=== PATIENT | female | born 1995 | race African-American/Black ===

== ENCOUNTER 2017-07-14 22:37 | Observation (INO) | payer OTHER ==
[2017-07-14 23:46] LABS: BILIRUBIN,URINE NEGATIVE (NEGATIVE); GLUCOSE, URINE (UA) NEGATIVE (NEGATIVE); KETONES,URINE (UA) 40 mg/dL (NEGATIVE); LEUKOCYTE ESTERASE, URINE NEGATIVE (NEGATIVE); NITRITE,URINE NEGATIVE (NEGATIVE); OCCULT BLOOD,URINE NEGATIVE (NEGATIVE); PROTEIN,URINE NEGATIVE (NEGATIVE); UROBILINOGEN,URINE 0.2 (NORMAL) E.U./dL (NORMAL)
[2017-07-14 23:56] LABS: CLARITY,URINE CLEAR (CLEAR); HCG UR QUAL NEGATIVE
[2017-07-15] MEDS ORDERED: ONDANSETRON 4 MG/2 ML VIAL IVP STA (00:36)
[2017-07-15] MEDS ORDERED: ACETAMINOPHEN 1,000 MG/100 ML 100 ML IV STA (00:36)
[2017-07-15] MEDS ORDERED: SODIUM CHLORIDE 0.9% 1,000 ML IV ONE (00:36)
--- NOTE | 2017-07-15 01:12 | ED Physician Documentation ---
PD HPI ABD PAIN - Stated complaint Stated Complaint: ABD PX - Chief complaint Chief Complaint: Abd Pain - History obtained from History obtained from: Patient, Family - History of Present Illness Timing - onset: Enter time (1800), Today Timing - duration: Hours Timing - details: Abrupt onset, Still present Quality: Sharp, Pain Location: Epigastric, RLQ Improved by: Laying still, Vomiting Worsened by: Moving Associated symptoms: Nausea, Vomiting. No: Diarrhea, Constipation Similar symptoms before: Has not had sx before Recently seen: Not recently seen - Additional information Additional information: 21-year-old female spent the afternoon with friends and came home had dinner and around 6:00 she began to have some epigastric pain followed by vomiting. She vomited about 6 times and now her pain has migrated to the lower abdomen. Review of Systems Constitutional: denies: Fever Eyes: denies: Decreased vision Ears: denies: Ear pain Nose: denies: Congestion Throat: denies: Sore throat Cardiac: denies: Chest pain / pressure Respiratory: denies: Dyspnea, Cough GI: reports: Abdominal Pain, Nausea, Vomiting : denies: Dysuria, Frequency Skin: denies: Rash Musculoskeletal: denies: Neck pain, Back pain, Extremity pain Neurologic: denies: Generalized weakness, Focal weakness, Numbness PD PAST MEDICAL HISTORY - Past Medical History Past Medical History: No - Past Surgical History Past Surgical History: No - Present Medications Home Medications: Ambulatory Orders Medication Instructions Recorded Confirmed No Known Home Medications [No 07/14/17 07/14/17 Known Home Medications] - Allergies Allergies/Adverse Reactions: Allergies Allergy/AdvReac Type Severity Reaction Status Date / Time No Known Drug Allergies Allergy Verified 07/14/17 22:53 - Social History Does the pt smoke?: No Smoking Status: Never smoker Does the pt drink ETOH?: Yes Does the pt have substance abuse?: No - Immunizations Immunizations are current?: Yes PD ED PE NORMAL - Vitals Vital signs reviewed: Yes (normal ) - General General: Alert and oriented X 3, No acute distress, Well developed/nourished - HEENT HEENT: Atraumatic, PERRL - Neck Neck: Supple, no meningeal sign, No bony TTP - Cardiac Cardiac: RRR, No murmur - Respiratory Respiratory: No respiratory distress, Clear bilaterally - Abdomen Abdomen: Soft, Other (There is no epigastric tenderness and no left or right upper quadrant tenderness. There is specific right lower quadrant tenderness that is reproducible and she does have garding. ) - Back Back: No CVA TTP, No spinal TTP - Derm Derm: Normal color, Warm and dry, No rash - Extremities Extremities: No deformity, No edema - Neuro Neuro: No motor deficit, No sensory deficit Eye Opening: Spontaneous Motor: Obeys Commands Verbal: Oriented GCS Score: 15 - Psych Psych: Normal mood, Normal affect Results - Vitals Vitals: Vital Signs - 24 hr 07/14/17 07/15/17 07/15/17 22:49 00:00 01:34 Temperature 37.4 C Heart Rate 98 99 95 Respiratory 18 20 16 Rate Blood Pressure 103/64 105/59 L 102/51 L O2 Saturation 100 100 99 07/15/17 02:38 Temperature Heart Rate 90 Respiratory 16 Rate Blood Pressure 101/56 L O2 Saturation 97 Oxygen O2 Source Room air - Labs Labs: Laboratory Tests 07/14/17 07/15/17 07/15/17 23:36 00:59 00:59 WBC 18.0 H RBC 4.39 Hgb 12.9 Hct 38.2 MCV 87.1 MCH 29.4 MCHC 33.8 RDW 13.8 Plt Count 231 MPV 8.5 Neut # 16.0 H Lymph # 1.2 L Starr # 0.8 Eos # 0.0 Baso # 0.0 Absolute Nucleated RBC 0.00 Nucleated RBC % 0.0 Sodium 137 Potassium 3.8 Chloride 106 Carbon Dioxide 20 L Anion Gap 11.0 BUN 14 Creatinine 0.6 Estimated GFR (MDRD) 152 Glucose 122 H Calcium 9.0 Total Bilirubin 0.8 AST 20 ALT 14 Alkaline Phosphatase 44 Total Protein 7.7 Albumin 4.3 Globulin 3.4 Albumin/Globulin Ratio 1.3 Lipase < 10 L Urine Color YELLOW Urine Clarity CLEAR Urine pH 6.0 Ur Specific [place] >=1.030 H Urine Protein NEGATIVE Urine Glucose (UA) NEGATIVE Urine Ketones 40 H Urine Occult Blood NEGATIVE Urine Nitrite NEGATIVE Urine Bilirubin NEGATIVE Urine Urobilinogen 0.2 (NORMAL) Ur Leukocyte Esterase NEGATIVE Ur Microscopic Review NOT INDICATED Urine Culture Comments NOT INDICATED Urine HCG, Qual NEGATIVE - Rads (name of study) CT ab/pel without Radiology: Prelim report reviewed (Impression: Appendix not clearly separable from low pelvic cecum and terminal ileum. No definite acute disease. If clinical suspicion of appendicitis is high, further evaluation with ultrasound may be helpful.), EMP read indepedently, See rad report Ultrasound abdomen limited Radiology: Prelim report reviewed (Impression: Findings consistent with acute appendicitis.), EMP read indepedently, See rad report PD MEDICAL DECISION MAKING - ED course Complexity details: reviewed results, re-evaluated patient, considered differential, d/w patient, d/w family ED course: 21-year-old female with acute epigastric pain has had migration of the pain to the right lower quadrant and this has persisted. It is been persistent on examination this morning repeatedly. A CT scan of the abdomen pelvis without contrast was obtained and the appendix was not able to be appreciated on that scan. An ultrasound of the right lower quadrant was obtained demonstrating acute appendicitis. Dr. Oswaldo Sinclair is consulted in the case and graciously agrees to care for the patient. Here in the emergency department patient administered a liter of saline and 1000 mg of acetaminophen intravenously.She has good improvement in her pain with the acetaminophen but continues to have specific right lower quadrant tenderness on exam. Departure - Departure Disposition: ED Transfer to [facility] Clinical Impression: Appendicitis Qualifiers: Appendicitis type: acute appendicitis Acute appendicitis type: with localized peritonitis Qualified Code(s): K35.3 - Acute appendicitis with localized peritonitis
[2017-07-15 01:18] LABS: ALBUMIN 4.3 g/dL (3.2-5.5); ALBUMIN/GLOBULIN RATIO 1.3 (1.0-2.2); ALKALINE PHOSPHATASE 44 IU/L (42-121); ALT ALANINE AMINOTRANSFERASE 14 IU/L (10-60); AST ASPARTATE AMINOTRANSFERASE 20 IU/L (10-42); BILIRUBIN,TOTAL 0.8 mg/dL (0.2-1.0); BUN - BLOOD UREA NITROGEN 14 mg/dL (6-20); CARBON DIOXIDE - CO2 20 mmol/L (21-32); CHLORIDE 106 mmol/L (101-111); CREATININE 0.6 mg/dL (0.4-1.0); GFR - MDRD 152 (>89); GLUCOSE 122 mg/dL (70-100); LIPASE < 10 U/L (22-51); SODIUM 137 mmol/L (135-145); TOTAL PROTEIN 7.7 g/dL (6.7-8.2)
[2017-07-15 01:26] LABS: BASOPHILS % (AUTO) 0.2 %; HGB - HEMOGLOBIN 12.9 g/dL (12.0-16.0); LYMPHOCYTES # (AUTO) 1.2 10^3/uL (1.5-3.5); LYMPHOCYTES % (AUTO) 6.5 %; MEAN CORPUSCULAR HEMOGLOBIN 29.4 pg (27.0-31.0); MEAN CORPUSCULAR HGB CONC 33.8 g/dL (32.0-36.0); MEAN CORPUSCULAR VOLUME 87.1 fL (81.0-99.0); MEAN PLATELET VOLUME 8.5 fL (7.9-10.8); MONOCYTES # (AUTO) 0.8 10^3/uL (0.0-1.0); MONOCYTES % (AUTO) 4.3 %; PLT - PLATELET COUNT 231 10^3/uL (130-450); RED BLOOD COUNT 4.39 10^6/uL (4.20-5.40); RED CELL DISTRIBUTION WIDTH 13.8 % (12.0-15.0)
--- NOTE | 2017-07-15 01:34 | CT Report ---
EXAM: CT ABDOMEN AND PELVIS EXAM DATE: 07/15/2017 01:15 AM. CLINICAL HISTORY: RLQ pain. COMPARISONS: None. TECHNIQUE: Routine helical CT imaging was performed through the abdomen and pelvis. IV contrast: None . Enteric contrast: No. Reconstructions: Coronal and sagittal. In accordance with CT protocol optimization, one or more of the following dose reduction techniques w ere utilized for this exam: automated exposure control, adjustment of mA and/or KV based on patient s ize, or use of iterative reconstructive technique. FINDINGS: Lung Bases: Unremarkable. Liver: Normal. No masses. Gallbladder/Bile Ducts: Unremarkable. Spleen: Normal. Pancreas: Normal. Adrenal Glands: Normal. Kidneys: Normal. No masses or hydronephrosis. Peritoneal Cavity/Bowel: Normal amount of stool. No bowel dilation, free fluid, free air, or lymphade nopathy. Cecum is low in the pelvis and terminal ileum and appendix are difficult to separate from ot her structures in the right lower pelvis. Lack of internal body fat to separate structures. Pelvic Organs: Normal. The bladder and visualized pelvic organs are within normal limits. Vasculature: No aneurysms or other significant abnormality. Bones: No significant abnormality. Other: None. IMPRESSION: Appendix not clearly separable from low pelvic cecum and terminal ileum. No definite acut e disease. If clinical suspicion of appendicitis is high, further evaluation with ultrasound may be h elpful. [facility] Referring Provider Line: [phone] SITE ID: [id number]
--- NOTE | 2017-07-15 02:53 | Ultrasound Preliminary Report ---
Exam: US ABDOMEN LIMITED IMPRESSION: Findings consistent with acute appendicitis. [facility] S[facility] [id number]
--- NOTE | 2017-07-15 03:00 | Ultrasound Report ---
EXAM: ABDOMEN ULTRASOUND LIMITED EXAM DATE: 07/15/2017 01:59 AM. CLINICAL HISTORY: Persistent right lower quadrant pain/tender. COMPARISON: CT same day. TECHNIQUE: Real-time scanning was performed with static images obtained. FINDINGS: Appendix Visualization: Appendix visualized, hyperemic and up to 7 mm in diameter. Reportedly unable to tolerate compression over the appendix. Complex Free Fluid Collection: Absent. Simple Free Fluid: Mild free fluid. Enlarged Mesenteric Lymph Nodes (>8mm short axis): Absent. Tenderness on Exam: Reportedly moderately tender. Incidental Findings: None. IMPRESSION: Findings consistent with acute appendicitis. [facility] Referring Provider Line: [phone] SITE ID: [id number]
[2017-07-15] MEDS ORDERED: cefOXitin 2 GM in SODIUM CHLORIDE 0.9% MINIBAG 100 ML IV ONE (03:19)
[2017-07-15] MEDS ORDERED: SODIUM CHLORIDE FLUSH 0.9% 10 ML SYRINGE IVP PRN (03:19)
[2017-07-15] MEDS ORDERED: HYDROmorphone 1 MG/ML CARPUJECT IVP PRN ×2 (03:19→03:22)
[2017-07-15] MEDS ORDERED: ONDANSETRON 4 MG/2 ML VIAL IVP PRN (03:22)
[2017-07-15] MEDS ORDERED: SODIUM CHLORIDE 0.9% 1,000 ML IV SCH (04:00)
--- NOTE | 2017-07-15 08:38 | HISTORY & PHYSICAL EXAMINATION ---
DATE OF SERVICE: Physician: Arpit Sinclair MD CHIEF COMPLAINT: Abdominal pain. HISTORY OF PRESENT ILLNESS: Patient is a 21-year-old female who presents with periumbilical pain starting a day prior to being seen for her abdominal pain. This is the first time she has had this pain. She denies any diarrhea or constipation. She has mild nausea, but no vomiting. Because of the pain, she came to the emergency room to be evaluated. She had a CT scan of the abdomen and pelvis, which did not reveal any abnormalities. Ultrasound revealed a 7 mm in diameter appendix consistent with acute appendicitis. Her white blood cell count was 18,000. test was negative. PAST MEDICAL HISTORY: None. MEDICATIONS: None. ALLERGIES TO MEDICATIONS: NONE. PAST SURGICAL HISTORY: None. HABITS: Patient socially uses alcohol. Denies any drug or smoking history. SOCIAL HISTORY: The patient is single. FAMILY HISTORY: Noncontributory. REVIEW OF SYSTEMS GASTROINTESTINAL: Abdominal pain and nausea. CONSTITUTIONAL: Not feeling well. A 12-point review of systems was obtained with pertinent positives discussed and all others being negative. PHYSICAL EXAMINATION VITAL SIGNS: Temperature is 37.2, heart rate 96, blood pressure 107/58. HEENT: Eyes nonicteric. NECK: No lymphadenopathy. HEART: Regular. LUNGS: Clear. BACK: Nontender. ABDOMEN: Soft, tender in right lower quadrant. No hernias, no masses. Positive Rovsing sign. EXTREMITIES: No edema or cyanosis. NEUROLOGIC: The patient appears to be neurologically intact without any deficit. PSYCHOLOGICAL: The patient is coherent, cooperative, and appears to answer questions fully. DIAGNOSTIC DATA: See history of present illness. ASSESSMENT: Acute abdominal pain now located in the right lower quadrant consistent with acute appendicitis. I have recommended she undergo a laparoscopy, appendectomy, possible laparotomy. The risks and possible complications of the procedure have been explained to her and include, but not limited to bleeding, infection, anesthesia risk, heart or lung problems , wound healing problems, other intra-abdominal problems needing further surgery, hernia formation, injuries to abdominal structures causing morbidity, the need for further intervention, etc. She would like to proceed with surgery, accepting the risk. PLAN 1. N.p.o. 2. IV fluids. 3. IV antibiotics for laparoscopic appendectomy, possible laparotomy. TD: 07/15/2017 08:37 [facility]
[2017-07-15] MEDS ORDERED: BUPIVACAINE 0.25% PF 30 ML VIAL ONE (08:40)
[2017-07-15] MEDS ORDERED: LACTATED RINGERS 1,000 ML IV ONE ×2 (09:00→10:28)
[2017-07-15] MEDS ORDERED: SODIUM CHLORIDE FLUSH 0.9% 10 ML SYRINGE IVP SCH (09:00)
[2017-07-15] MEDS ORDERED: PROPOFOL 200 MG/20 ML VIAL IVP ONE (09:15)
[2017-07-15] MEDS ORDERED: ROCURONIUM 50 MG/5 ML VIAL IVP ONE (09:15)
[2017-07-15] MEDS ORDERED: MIDAZOLAM 2 MG/2 ML VIAL IVP ONE (09:15)
[2017-07-15] MEDS ORDERED: NEOSTIGMINE 1 MG/1 ML 10 ML MDV IVP ONE (09:15)
[2017-07-15] MEDS ORDERED: DEXAMETHASONE 4 MG/ML VIAL IVP ONE (09:15)
[2017-07-15] MEDS ORDERED: ONDANSETRON 4 MG/2 ML VIAL IVP ONE (09:15)
[2017-07-15] MEDS ORDERED: KETOROLAC 30 MG/ML VIAL IVP ONE (09:15)
[2017-07-15] MEDS ORDERED: LIDOCAINE-MPF 2% 5 ML VIAL IM ONE (09:15)
[2017-07-15] MEDS ORDERED: fentaNYL 100 MCG/2 ML VIAL IVP ONE (09:15)
[2017-07-15] MEDS ORDERED: GLYCOPYRROLATE 1 MG/5 ML VIAL IVP ONE (09:15)
[2017-07-15] MEDS ORDERED: BUPIVACAINE 0.25% PF 30 ML VIAL SUBQ ONE (09:46)
[2017-07-15] MEDS ORDERED: ONDANSETRON 4 MG/2 ML VIAL ONE (10:50)
[2017-07-15] MEDS ORDERED: ACETAMINOPHEN 1,000 MG/100 ML 100 ML IV ONE (10:57)
--- NOTE | 2017-07-15 12:30 | OPERATIVE REPORT ---
DATE OF SERVICE: 07/15/2017 Physician: Arpit Sinclair MD PRE-PROCEDURE DIAGNOSIS: Acute appendicitis. POST-PROCEDURE DIAGNOSIS: Acute appendicitis. PROCEDURE: Laparoscopic appendectomy. SURGEON: Arpit Sinclair MD ANESTHESIA: General anesthesia. INDICATIONS: The patient is a 21-year-old female who presents with less than 24-hour history of abdominal pain, which is now mainly in the right lower quadrant along with tenderness, consistent with acute appendicitis. She had a white blood cell count of 18,000. Ultrasound of the abdomen reveals a dilated appendix at 7 mm, suspicious for acute appendicitis. FINDINGS AT SURGERY: Patient with acutely inflamed, nonperforated appendicitis. DESCRIPTION OF PROCEDURE: After informed consent was obtained, patient was taken to the operating room and placed in a supine position. General anesthesia was administered. The patient's abdomen was then prepped and draped in the usual sterile fashion. An infraumbilical incision was made in the skin using a scalpel. A 5 mm Optiview trocar was inserted through the incision, through the fascia, and into abdominal cavity under direct vision. The abdomen was then insufflated. A 5 mm port was placed in the right and left lower quadrants under direct vision, with the 5 mm port at the umbilicus switched to a 12 mm port. The appendix was acutely inflamed when looking down in the right lower quadrant. An opening was then made in the mesentery of the appendix at its base. An Endo-IDO was then placed across the base of the appendix, stapling and dividing it. Using a LigaSure cautery device, the mesentery of the appendix was then divided. The appendix was then placed in an Endobag and removed through the umbilical port site. The abdomen in the right lower quadrant and pelvis was then irrigated until the returning fluid was clear. Looking in the right lower quadrant, no bleeding was noted. The ports were then removed. No bleeding was noted at the port sites, with the abdomen then being desufflated. The umbilical fascial defect was closed using #0 Vicryl suture. Skin incisions were injected with local anesthesia. Skin incisions were closed using interrupted 4-0 Monocryl subcuticular stitch. Dermabond was then applied. Patient was then awakened, extubated, and taken from the operating room in stable condition. ESTIMATED BLOOD LOSS: Less than 5 mL. COMPLICATIONS: None. CONDITION OF THE PATIENT AT END OF PROCEDURE: Stable. SPECIMENS: Appendix. DRAINS AND PACKS: None. CLASSIFICATION OF WOUND: Clean/contaminated. TD: 07/15/2017 10:49
[2017-07-15 12:49] VITALS: BP 107/58
== END 2017-07-15 12:50 | disposition home or self-care (01) ==
LOC: ED 22:37 → OBS 07-15 03:19
PROVIDERS: ADMIT Surgery; ATTEND Surgery
PROC: 0DTJ4ZZ Resection of Appendix, Percutaneous Endoscopic Approach (ICD-10-PCS; principal; 2017-07-15 08:30)
DX: K35.80 Unspecified acute appendicitis (principal)
CPT/HCPCS: 36415; 44970; 74176; 76705; 80053; 81003; 81025; 83690; 85025; 96361; 96365; 96375; 99283; 99285; G0378; J0131; J1170; J7120; 81001; 87086; 88304